=== PATIENT | male | born 1995 | race Caucasian/White ===

== ENCOUNTER → 2016-11-16 | Outpatient (CLI) | payer BC ==
--- OUTSIDE RECORDS SUMMARY | 2016-11-16 14:22 | XMS REPORT | Continuity of Care Document ---
Author Author [facility] Organization [facility] Address Unknown Phone Unavailable Care Team Providers Care Analytical Engineer Name Role Phone Fidel Alatorre PCP [phone] Source Comments Some departments are not documenting in the electronic medical record. If you do not see the information that you expected, contact Release of Information in the Health Information Management department at [phone] for further assistance in locating additional records.[facility] Active Allergies and Adverse Reactions Not on File Current Medications Not on file Active Problems Not on file Social History Tobacco Use Types Packs/Day Years Used Date Never Assessed Plan of Care Health Maintenance Due Date Last Done Comments Physical (Comprehensive) 2001 Exam Hpv Vaccines (#1) 2005 Pertussis Vaccine 2005 Tetanus Vaccine 2011 Influenza Vaccine 05/08/2016 Results from Last 3 Months Not on file
--- NOTE | 2016-11-16 15:32 | Diagnostic Imaging Report ---
INDICATION: Recurrent cough. EXAMINATION: Two-view chest, 11/16/2016. FINDINGS: Two views of the chest. Heart is unremarkable. Pulmonary vasculature is within normal limits. There are no infiltrates or effusions. There is no pneumothorax. There is a nonspecific peripheral hyperdensity in the left upper quadrant. Most likely, this is a peripherally calcified lesion associated with the spleen. A peripherally calcified vessel is felt to be unlikely given the size. IMPRESSION: 1. No acute cardiopulmonary process. 2. Nonspecific peripherally calcified area in the left upper quadrant. If there are no priors available for comparison, CT imaging of the abdomen could be performed for better characterization. Dictated by: Dictated on workstation # [id number]
== END ==
LOC: RAD 14:19
PROVIDERS: ATTEND Nurse Practitioner Family
DX: R05 Cough (principal)
CPT/HCPCS: 71020